=== PATIENT | female | born 1965 | race Caucasian/White ===

== ENCOUNTER 2025-03-27 17:07 | Emergency (ER) | payer OTHER ==
[2025-03-27 17:13] VITALS: TEMP 98.3; BMI 28.3
[2025-03-27] MEDS ORDERED: MAG HYDROX/AL HYDROX/SIMETH 30 ML UNIT-DOSE CUP ONE (18:46)
[2025-03-27] MEDS ORDERED: FAMOTIDINE 20 MG/50 ML IVPB 20 MG/50 ML MG IVPB ONE (18:46)
[2025-03-27] MEDS ORDERED: ACETAMINOPHEN INJECTION 100 ML ONE (18:46)
[2025-03-27] MEDS: FAMOTIDINE 20 MG/50 ML IVPB 20 MG/50 ML MG IVPB ONE (18:47)
[2025-03-27] MEDS: MAG HYDROX/AL HYDROX/SIMETH 30 ML UNIT-DOSE CUP PO ONE (18:47)
[2025-03-27] MEDS: ACETAMINOPHEN 1000 MG/100 ML BAG IVPB ONE (19:01)
[2025-03-27 19:36] LABS: ABSOLUTE IMMATURE GRANULOCYTES 0.02 x10^3/uL (0.0-0.031); BASOPHILS # 0.06 x10^3/uL (0.01-0.08); EOSINOPHIL % 1.2 % (0.7-5.8); EOSINOPHILS # 0.09 x10^3/uL (0.04-0.36); MCHC 31.8 g/dl (32.2-35.5); MEAN CELL VOLUME 90.2 fl (79.4-94.8); MEAN PLT VOLUME 11.0 fl (9.4-12.3); MONOCYTE # 0.60 x10^3/uL (0.24-0.86); MONOCYTE % 7.7 % (4.7-12.5); RDW 13.1 % (12.4-16.4)
[2025-03-27 19:52] LABS: CO2 28.0 mmol/L (21-32); GLUCOSE,RANDOM 105.0 mg/dL (74-106)
[2025-03-27 19:55] LABS: CREATININE 0.8 mg/dL (0.55-1.3); SGOT/AST 15.0 U/L (15-37); SGPT/ALT 20.0 U/L (13-61)
[2025-03-27 19:57] LABS: TOT PROT 7.4 g/dl (6.4-8.2)
[2025-03-27 19:58] LABS: ALK PHOS 108.0 U/L (45-117)
[2025-03-27 22:41] VITALS: BP 120/78; PULSE 77; RESP 18
[2025-03-28 00:35] LABS: HCV DIAGNOSTIC IN-HOUSE W/RFLX NON-REACTIVE (NONREACTIVE)
[2025-03-28 00:40] LABS: HIV INTERPRETATION NEGATIVE (NEGATIVE)
== END 2025-03-27 22:41 | disposition home or self-care (01) ==
LOC: JER 17:07
PROC: 3E033GC Introduction of Other Therapeutic Substance into Peripheral Vein, Percutaneous Approach (ICD-10-PCS; principal; 2025-03-27)
PROC: 3E033GC Introduction of Other Therapeutic Substance into Peripheral Vein, Percutaneous Approach (ICD-10-PCS; 2025-03-27)
DX: R10.13 Epigastric pain (principal); R10.11 Right upper quadrant pain; R11.0 Nausea; M54.50 Low back pain, unspecified
CPT/HCPCS: 36415; 76705-TC; 80053; 83690; 83735; 84484; 85025; 86803; 87389; 93005; 93010; 99285-25